=== PATIENT | male | born 1975 | race African-American/Black ===

== ENCOUNTER 2017-08-31 11:05 | Observation (INO) | payer SELFPAY ==
[2017-08-31] MEDS ORDERED: NORMAL SALINE 1000 ML 1,000 ML IV ONE ×2 (12:06→14:58)
--- NOTE | 2017-08-31 12:06 | ER Document Report ---
ED Medical Screen (RME) - General Chief Complaint: Abdominal Pain Stated Complaint: ABDOMINAL PAIN Time Seen by Provider: 08/31/17 11:54 Mode of Arrival: Ambulatory Information source: Patient TRAVEL OUTSIDE OF THE [place] IN LAST 30 DAYS: No - Related Data Allergies/Adverse Reactions: No Known Allergies Allergy (Unverified 08/31/17 11:07) Physical Exam - Vital signs Vitals: Temp Pulse Resp BP Pulse Ox 98.0 F 60 16 156/105 H 97 08/31/17 11:10 08/31/17 11:10 08/31/17 11:10 08/31/17 11:10 08/31/17 11:10 Course - Vital Signs Vital signs: Temp Pulse Resp BP Pulse Ox 98.0 F 60 16 156/105 H 97 08/31/17 11:10 08/31/17 11:10 08/31/17 11:10 08/31/17 11:10 08/31/17 11:10
--- NOTE | 2017-08-31 12:11 | ER Document Report ---
ED GI/ - General Chief Complaint: Abdominal Pain Stated Complaint: ABDOMINAL PAIN Time Seen by Provider: 08/31/17 11:54 Mode of Arrival: Ambulatory Information source: Patient Notes: 42-year-old obese smoker is complaining of left-sided abdominal pain that woke him up at 04 100 this morning. He vomited once a couple hours after the pain started and has had a hard and a loose stool today. Neither of those change the pain. It waxes and wanes but does not completely go away. There is no radiation to the penis or testicles or flank. No fever or chills. No history of Crohn's, colitis, pancreatitis, diverticulitis, kidney stones. TRAVEL OUTSIDE OF THE [place] IN LAST 30 DAYS: No - Related Data Allergies/Adverse Reactions: No Known Allergies Allergy (Unverified 08/31/17 11:07) Past Medical History - General Information source: Patient - Social History Smoking Status: Current Every Day Smoker Frequency of alcohol use: None Drug Abuse: None Lives with: Spouse/Significant other Family History: Reviewed & Not Pertinent - Medical History Medical History: Negative Surgical Hx: Negative Review of Systems - Review of Systems Constitutional: No symptoms reported EENT: No symptoms reported Cardiovascular: No symptoms reported Respiratory: No symptoms reported Gastrointestinal: See HPI Genitourinary: No symptoms reported Male Genitourinary: No symptoms reported Musculoskeletal: No symptoms reported Skin: No symptoms reported Hematologic/Lymphatic: No symptoms reported Neurological/Psychological: No symptoms reported Physical Exam - Vital signs Vitals: Temp Pulse Resp BP Pulse Ox 98.0 F 60 16 156/105 H 97 08/31/17 11:10 08/31/17 11:10 08/31/17 11:10 08/31/17 11:10 08/31/17 11:10 Interpretation: Normal - General General appearance: Appears well, Alert Notes: Obese - HEENT Head: Normocephalic, Atraumatic Eyes: Normal Conjunctiva: Normal Pupils: PERRL Neck: Supple. No: Lymphadenopathy - Respiratory Respiratory status: No respiratory distress Chest status: Nontender Breath sounds: Normal Chest palpation: Normal - Cardiovascular Rhythm: Regular Heart sounds: Normal auscultation Murmur: No - Abdominal Inspection: Normal Distension: No distension Bowel sounds: Normal Tenderness: Tender - left middle quadrant, LLQ, RLQ Organomegaly: No organomegaly. No: Hepatomegaly, Splenomegaly - Back Back: Normal, Nontender. No: CVA tenderness - Extremities General upper extremity: Normal inspection, Nontender, Normal color, Normal ROM , Normal temperature General lower extremity: Normal inspection, Nontender, Normal color, Normal ROM , Normal temperature, Normal weight bearing. No: Km's sign - Neurological Neuro grossly intact: Yes Cognition: Normal Orientation: AAOx4 Leggett Coma Scale Eye Opening: Spontaneous Mukesh Coma Scale Verbal: Oriented Leggett Coma Scale Motor: Obeys Commands Leggett Coma Scale Total: 15 Speech: Normal Motor strength normal: LUE, RUE, LLE, RLE Sensory: Normal - Psychological Associated symptoms: Normal affect, Normal mood - Skin Skin Temperature: Warm Skin Moisture: Dry Skin Color: Normal Skin irregularity: negative: Rash Course - Re-evaluation Re-evalutation: 08/31/17 14:44 CBC elevated white count 13.9 with 87% segs, urine 1+ bacteria and 11 WBCs I added a urine culture and ordered Rocephin 1 g IV. He is only tender in the right lower quadrant at this time over McBurney's but there is no guarding or rebound. I did call Dr. Renee to have him look at the patient and he also examined the CT scan. The radiologist that the appendix was normal he did mention a 3.6 cm esophageal cyst which the patient will have to see a sleeve tailor about. There is also nonobstructing left renal stones. Dr. Renee will come see the patient. 08/31/17 14:46 08/31/17 14:58 Dr. Renee saw the patient and thinks it might be appendicitis he wants another liter of fluid given no pain medicine and Rocephin 1 g IV which have been ordered. 08/31/17 16:09 dr quinones is taking the pt to surgery. - Vital Signs Vital signs: Temp Pulse Resp BP Pulse Ox 98.0 F 60 16 156/105 H 97 08/31/17 11:10 08/31/17 11:10 08/31/17 11:10 08/31/17 11:10 08/31/17 11:10 - Laboratory Result Diagrams: 08/31/17 12:30 08/31/17 12:30 Laboratory results interpreted by me: 08/31/17 08/31/17 08/31/17 12:13 12:30 12:30 WBC 13.9 H RBC 6.14 H Hgb 17.1 H RDW 14.7 H Seg Neutrophils % 87.2 H Lymphocytes % 8.6 L Absolute Neutrophils 12.2 H Potassium 5.3 H Chloride 110 H Direct Bilirubin 0.8 H ALT 19 L Urine Protein 30 H Ur Leukocyte Esterase SMALL H Discharge - Discharge Clinical Impression: Right lower quadrant abdominal pain Condition: Stable Disposition: ADMITTED INPATIENT Admitting Provider: Surgicalist Unit Admitted: Surgical Floor
[2017-08-31 12:28] LABS: APPEARANCE,URINE CLEAR; BILIRUBIN,URINE NEGATIVE (NEGATIVE); COLOR,URINE YELLOW; GLUCOSE, URINE NEGATIVE (NEGATIVE); KETONES,URINE NEGATIVE (NEGATIVE); LEUKOCYTE ESTERASE,URINE SMALL (NEGATIVE); NITRITE,URINE NEGATIVE (NEGATIVE); PROTEIN,URINE 30 mg/dL (NEGATIVE); URINE SPECIFIC GRAVITY 1.012; UROBILINOGEN,URINE NEGATIVE mg/dL (<2.0)
[2017-08-31] MEDS ORDERED: MORPHINE SULFATE 10 MG/ML INJ IV ONE ×2 (12:42→16:13)
[2017-08-31] MEDS ORDERED: ONDANSETRON 4 MG TAB.RAPDIS PO ONE (12:42)
[2017-08-31 12:50] LABS: ABSOLUTE EOSINOPHILS # (AUTO) 0.1 10^3/uL (0.0-0.6); ABSOLUTE LYMPHOCYTES (AUTO) 1.2 10^3/uL (0.5-4.7); ABSOLUTE MONOCYTES (AUTO) 0.5 10^3/uL (0.1-1.4); ABSOLUTE NEUT (AUTO) 12.2 10^3/uL (1.7-8.2); BASOPHILS % (AUTO) 0.2 % (0-2); EOSINOPHILS % (AUTO) 0.4 % (0-6); HEMATOCRIT 50.4 % (37.9-51.0); HEMOGLOBIN 17.1 g/dL (13.5-17.0); LYMPHOCYTES % (AUTO) 8.6 % (13-45); MEAN CORPUSCULAR HEMOGLOBIN 27.9 pg (27.0-33.4); MEAN CORPUSCULAR VOLUME 82 fl (80-97); MONOCYTES % (AUTO) 3.6 % (3-13); PLATELET COUNT 278 10^3/uL (150-450); RED BLOOD COUNT 6.14 10^6/uL (4.35-5.55); RED CELL DISTRIBUTION WIDTH 14.7 % (11.5-14.0); SEGMENTED NEUTROPHILS % (AUTO) 87.2 % (42-78); TOTAL CELLS COUNTED % (AUTO) 100 %; WHITE BLOOD COUNT 13.9 10^3/uL (4.0-10.5)
[2017-08-31 13:32] LABS: ALANINE AMINOTRANSFERASE 19 U/L (21-72); ALKALINE PHOSPHATASE 61 U/L (38-126); ANION GAP 9 (5-19); ASPARTATE AMINO TRANSFERASE 43 U/L (17-59); BILIRUBIN,DIRECT 0.8 mg/dL (0.0-0.4); BILIRUBIN,TOTAL 1.2 mg/dL (0.2-1.3); BLOOD UREA NITROGEN 7 mg/dL (7-20); CALCIUM 8.6 mg/dL (8.4-10.2); CARBON DIOXIDE 22 mmol/L (22-30); CHLORIDE 110 mmol/L (98-107); GLUCOSE 102 mg/dL (75-110); LIPASE 57.5 U/L (23-300); POTASSIUM 5.3 mmol/L (3.6-5.0); SODIUM 141.4 mmol/L (137-145); TOTAL PROTEIN 7.4 g/dL (6.3-8.2)
--- NOTE | 2017-08-31 13:40 | RADIOLOGY REPORT (SQ) ---
EXAM DESCRIPTION: CT ABD/PELVIS WITH IV ONLY COMPLETED DATE/TIME: 08/31/2017 12:07 pm REASON FOR STUDY: abd pain COMPARISON: None. TECHNIQUE: CT scan of the abdomen and pelvis performed using helical scanning technique with dynamic intravenous contrast injection. No oral contrast. Images reviewed with lung, soft tissue, and bone windows. Reconstructed coronal and sagittal MPR images reviewed. Delayed images for evaluation of the urinary system also acquired. All images stored on PACS. All CT scanners at this facility use dose modulation, iterative reconstruction, and/or weight based d osing when appropriate to reduce radiation dose to as low as reasonably achievable (ALARA). [facility]: Dose Right [facility]: CareDose [facility]: Dose Right [facility]: Teradose 4D [facility]: [employer] CONTRAST TYPE AND DOSE: contrast/concentration: Isovue 370.00 mg/ml; Total Contrast Delivered: 100.0 ml; Total Saline Delivered: 69.0 ml RENAL FUNCTION: None required. The patient is less than 50 years old. RADIATION DOSE: CT Rad equipment meets quality standard of care and radiation dose reduction techniq ues were employed. CTDIvol: 21.1 - 29.7 mGy. DLP: 2795 mGy-cm.. LIMITATIONS: None. FINDINGS: LOWER CHEST: Lung bases are clear. Just above the level of the GE junction, there is an o void well-circumscribed 3.6 cm low density cyst which appears to be intimately associated with the es ophagus. Possibly exerting mass effect on it. Differential includes an esophageal duplication cyst, pericardial or other cyst. LIVER: Normal size. No masses. No dilated ducts. SPLEEN: Normal size. No focal lesions. PANCREAS: No masses. No significant calcifications. No adjacent inflammation or peripancreatic fluid collections. Pancreatic duct not dilated. GALLBLADDER: No identified stones by CT criteria. No inflammatory changes to suggest cholecystitis. ADRENAL GLANDS: Slight nodularity in the bilateral adrenals without dominant mass. Doubtful clinical significance. RIGHT KIDNEY AND URETER: No solid masses. No significant calcification. No hydronephrosis or hydroure ter. LEFT KIDNEY AND URETER: Nonobstructive left nephrolithiasis. No mass. AORTA AND VESSELS: No aneurysm. No dissection. Renal arteries, SMA, celiac without stenosis. RETROPERITONEUM: No retroperitoneal adenopathy, hemorrhage or masses. BOWEL AND PERITONEAL CAVITY: No masses or inflammatory changes. No free fluid or peritoneal masses. APPENDIX: Normal. PELVIS: No mass. No free fluid. Normal bladder. ABDOMINAL WALL: No masses. No hernias. BONES: No significant or acute findings. OTHER: No other significant finding. IMPRESSION: 1. No acute or suspicious abdominopelvic abnormality. 2. Left nephrolithiasis without e vidence of urinary obstruction. 3. Incidental cyst along the distal esophagus in the posterior medi astinum. 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 This can be associated with dysphagia or vomiting, however this does not sound like the patients current presentation (lower abdominal pain). As warranted, elective followup gastroenterology referral may otherwise be indicated. TECHNICAL DOCUMENTATION: JOB ID: [id number] Quality ID # [id number]: Final reports with documentation of one or more dose reduction techniques (e.g., Au tomated exposure control, adjustment of the mA and/or kV according to patient size, use of iterative reconstruction technique) 2010 [employer]- All Rights Reserved Reading location - IP/workstation name: [email or web address]
[2017-08-31] MEDS ORDERED: VECURONIUM BROMIDE INJ 10 MG VIAL IV ONE (14:16)
[2017-08-31] MEDS ORDERED: SUCCINYLCHOLINE CHLORIDE INJ 200 MG/10 ML VIAL ONE (14:16)
[2017-08-31] MEDS ORDERED: CEFTRIAXONE INJ 1000 MG VIAL IV ONE (14:42)
--- NOTE | 2017-08-31 16:20 | PDOC H&P ---
History of Present Illness Patient complains of: Abdominal pain History of Present Illness: CLARA OLGUIN is a 42 year old male Who presents emergency department complaining of Approximately 12 hour history of abdominal pain. This woke the patient up late last night mostly suprapubic and initially felt on the left side of the abdomen but over the course of the last several hours has focused on the right side. No associated nausea or vomiting. Patient received pain medication IV fluids intravenous antibiotics for persisting abdominal pain with incomplete resolution. Patient underwent CT scan of the abdomen and pelvis with IV contrast only which showed left renal stone no other pathology. Surgery was consulted. Patient was advised admission. Upon examination to the patient by Dr. Renee approximately 1400, the patient has significant right lower quadrant tenderness with guarding. CT scan reviewed by Dr. Renee without oral contrast demonstrated mild periappendiceal stranding. There was no evidence of fluid or free air or phlegmon. The impression at this point was that the patient had acute appendicitis and was offered admission and interval appendectomy. Past Medical History Medical History: None Past Surgical History Past Surgical History: Reports: None, Other - Mild trauma repair soft tissue behind left ear as child Social History Information Source: Patient Lives with: Spouse/Significant other Smoking Status: Current Every Day Smoker Cigarettes Packs Per Day: 1 Frequency of Alcohol Use: Rare Family History Family History: Reviewed & Not Pertinent, CAD Parental Family History Reviewed: Yes Children Family History Reviewed: Yes Sibling(s) Family History Reviewed.: Yes Medication/Allergy Allergies/Adverse Reactions: No Known Allergies Allergy (Unverified 08/31/17 11:07) Review of Systems Constitutional: ABSENT: chills, fever(s), headache(s), weight gain, weight loss Eyes: ABSENT: visual disturbances Ears: ABSENT: hearing changes Cardiovascular: ABSENT: chest pain, dyspnea on exertion, edema, orthropnea, palpitations Respiratory: ABSENT: cough, hemoptysis Gastrointestinal: PRESENT: as per HPI Genitourinary: ABSENT: dysuria, hematuria Musculoskeletal: ABSENT: joint swelling Physical Exam Vital Signs: Temp Pulse Resp BP Pulse Ox 98.0 F 60 16 156/105 H 97 08/31/17 11:10 08/31/17 11:10 08/31/17 11:10 08/31/17 11:10 08/31/17 11:10 Intake & Output 08/30/17 08/31/17 09/01/17 06:59 06:59 06:59 Intake Total 1000 Balance 1000 Weight 142.4 kg General appearance: PRESENT: mild distress Head exam: PRESENT: normocephalic Eye exam: PRESENT: EOMI Ear exam: PRESENT: normal external ear exam Neck exam: PRESENT: full ROM Respiratory exam: PRESENT: rhonchi - biLaterally Cardiovascular exam: PRESENT: RRR Pulses: PRESENT: normal carotid pulses, normal radial pulses, normal femoral pulses GI/Abdominal exam: PRESENT: other - Obese; tender suprapubic areas right much greater than left with guarding. No groin hernias Rectal exam: PRESENT: deferred Gentrourinary exam: PRESENT: other - No obvious lesions Extremities exam: PRESENT: full ROM Musculoskeletal exam: PRESENT: ambulatory Neurological exam: PRESENT: alert, awake, oriented to person, oriented to place , oriented to time, oriented to situation Psychiatric exam: PRESENT: anxious Results Laboratory Results: 08/31/17 12:30 08/31/17 12:30 08/31/17 08/31/17 08/31/17 12:13 12:30 12:30 WBC 13.9 H RBC 6.14 H Hgb 17.1 H Hct 50.4 MCV 82 MCH 27.9 MCHC 34.0 RDW 14.7 H Plt Count 278 Seg Neutrophils % 87.2 H Lymphocytes % 8.6 L Monocytes % 3.6 Eosinophils % 0.4 Basophils % 0.2 Absolute Neutrophils 12.2 H Absolute Lymphocytes 1.2 Absolute Monocytes 0.5 Absolute Eosinophils 0.1 Absolute Basophils 0.0 Sodium 141.4 Potassium 5.3 H Chloride 110 H Carbon Dioxide 22 Anion Gap 9 BUN 7 Creatinine 0.68 Est GFR ( Amer) > 60 Est GFR (Non-Af Amer) > 60 Glucose 102 Calcium 8.6 Total Bilirubin 1.2 AST 43 ALT 19 L Alkaline Phosphatase 61 Total Protein 7.4 Albumin 4.0 Lipase 57.5 Urine Color YELLOW Urine Appearance CLEAR Urine pH 7.0 Ur Specific [place] 1.012 Urine Protein 30 H Urine Glucose (UA) NEGATIVE Urine Ketones NEGATIVE Urine Blood NEGATIVE Urine Nitrite NEGATIVE Ur Leukocyte Esterase SMALL H Urine WBC (Auto) 21 Urine RBC (Auto) 2 Impressions: Abdomen/Pelvis CT 08/31/17 12:06 IMPRESSION: 1. No acute or suspicious abdominopelvic abnormality. 2. Left nephrolithiasis without evidence of urinary obstruction. 3. Incidental cyst along the distal esophagus in the posterior mediastinum. 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 This can be associated with dysphagia or vomiting , however this does not sound like the patients current presentation (lower abdominal pain). As warranted, elective followup gastroenterology referral may otherwise be indicated. Status: Image reviewed by me - No free fluid no free air; borderline prominent appendix with early periappendiceal stranding Assessment & Plan - Diagnosis (1) Acute abdominal pain Is this a current diagnosis for this admission?: Yes Plan: Patient's clinical history physical exam findings laboratory profile consistent with acute appendicitis; the CT scan finding was soft at best; scan accuracy diminished due to absence of oral contrast. Patient still hurting after pain medication, IV fluids, IV antibiotics. Recommendations: 1. Admit, keep n.p.o., continue IV fluids. 2. I have recommended laparoscopic possible open appendectomy, general anesthesia, 1 hour, main operating room, today, [facility]; risk benefits and alternatives of planned procedure explained to the patient. These included bleeding, infection, need for additional surgery, need for drain placement. I believe he understands and agrees to proceed (2) Leukocytosis Is this a current diagnosis for this admission?: Yes (4) Smoker Is this a current diagnosis for this admission?: Yes - Time Time Spent: 30 to 50 Minutes Critical Time spent with patient: 15-24 minutes Medications reviewed and adjusted accordingly: Yes Anticipated discharge: Home Within: within 24 hours - Inpatient Certification Based on my medical assessment, after consideration of the patient's comorbidities, presenting symptoms, or acuity I expect that the services needed warrant INPATIENT care.: Yes Medical Necessity: Need For IV Fluids, Need for Pain Control, Need for IV Antibiotics, Need for Surgery
[2017-08-31] MEDS ORDERED: ONDANSETRON HCL INJ/PF 4 MG/2 ML SDV IV ONE (16:23)
[2017-08-31] MEDS ORDERED: BUPIVACAINE HCL 0.25 % INJ/PF (2.5 MG/1 ML) 30 ML VIAL ONE (16:26)
[2017-08-31] MEDS ORDERED: HYDROMORPHONE HCL INJ/PF 2 MG/ML AMPULE ONE (16:51)
[2017-08-31] MEDS ORDERED: FENTANYL CITRATE INJ/PF 250 MCG/5 ML AMPULE ONE (16:51)
[2017-08-31] MEDS ORDERED: LIDOCAINE 2% INJ-PF (20 MG/ML) 10 ML AMPUL ONE (16:51)
[2017-08-31] MEDS ORDERED: PROPOFOL INJ 200 MG/20 ML VIAL IV ONE (16:52)
[2017-08-31] MEDS ORDERED: EPHEDRINE SULFATE INJ 50 MG/1 ML AMPULE ONE (16:52)
[2017-08-31] MEDS ORDERED: ACETAMINOPHEN 1,000 MG/100 ML RTUPB IV ONE (16:52)
[2017-08-31] MEDS ORDERED: DEXAMETHASONE SOD PHOSPHATE INJ 4 MG/1 ML VIAL ONE (16:52)
[2017-08-31] MEDS ORDERED: MIDAZOLAM 2 MG/2 ML INJ ONE (16:52)
[2017-08-31] MEDS ORDERED: ONDANSETRON HCL INJ/PF 4 MG/2 ML SDV ONE (16:52)
[2017-08-31] MEDS ORDERED: KETOROLAC TROMETHAMINE 60 MG/2 ML SDV ONE (16:53)
[2017-08-31] MEDS ORDERED: ALBUTEROL SULFATE 0.083% NEB 2.5 MG/3 ML AMPUL NEB ONE (17:00)
[2017-08-31 17:35] LABS: ANION GAP 9 (5-19); BLOOD UREA NITROGEN 6 mg/dL (7-20); CALCIUM 8.4 mg/dL (8.4-10.2); CARBON DIOXIDE 24 mmol/L (22-30); CHLORIDE 110 mmol/L (98-107); GLUCOSE 108 mg/dL (75-110); SODIUM 142.6 mmol/L (137-145)
[2017-08-31 17:39] LABS: POTASSIUM 4.1 mmol/L (3.6-5.0)
[2017-08-31] MEDS ORDERED: OXYCODONE-ACETAMINOPHEN 5-325 MG TABLET PO PRN ×3 (18:01→18:36)
[2017-08-31] MEDS ORDERED: MEPERIDINE HCL/PF INJ 25 MG/1 ML DISP.SYRIN IV PRN (18:01)
[2017-08-31] MEDS ORDERED: PROMETHAZINE HCL INJ 25 MG/1 ML VIAL IV PRN ×2 (18:01)
[2017-08-31] MEDS ORDERED: MORPHINE SULFATE 10 MG/ML INJ IV PRN (18:01)
[2017-08-31] MEDS ORDERED: FENTANYL CITRATE INJ/PF 100 MCG/2 ML AMPUL IV PRN ×3 (18:01)
[2017-08-31] MEDS ORDERED: DIPHENHYDRAMINE HCL 50 MG/ML VIAL IV PRN (18:01)
[2017-08-31] MEDS ORDERED: ONDANSETRON HCL INJ/PF 4 MG/2 ML SDV IV PRN ×2 (18:01→18:36)
--- NOTE | 2017-08-31 18:44 | Operative Report ---
Operative Report DATE OF SURGERY: 08/31/17 PREOPERATIVE DIAGNOSIS: Acute appendicitis POSTOPERATIVE DIAGNOSIS: Same OPERATION: Laparoscopic appendectomy SURGEON: BELL SHARP ANESTHESIA: GA TISSUE REMOVED OR ALTERED: appendix COMPLICATIONS: none ESTIMATED BLOOD LOSS: scant INTRAOPERATIVE FINDINGS: see below PROCEDURE: The patient was taken to the preop holding area the main operating room where generalized was induced. Arms were abducted, abdomen prepped and draped in sterile fashion. Patient had voided prior to entry into the operating room. Surgical plan surgical timeout were conducted Markings were made on the skin for 3 port appendectomy. Skin was anesthetized with 1% plain lidocaine. A supraumbilical vertical incision made with a knife no cavity pneumoperitoneum established. Veress needle was removed, 5 mm port was inserted and a flexible 5 mm viewing scope was inserted. Under direct visualization 2 additional ports were placed one 5 mm supraumbilical position and a 12 mm left lower quadrant. Findings are significant for an acutely inflamed appendix with seropurulent discharge in this immediate vicinity. There is no evidence of widespread peritonitis, or rupture. The appendix was grasped, and the mesoappendix taken down with blunt and hook dissection. We had the appendix is suspended from the mesoappendix and the junction between the base the appendix and the cecum was clearly visualized. We opened up the mesoappendix adjacent to the base of the appendix. A single firing of the 55 mm Endo JUAN blue load stapler was deployed across the appendiceal base. We reloaded the stapler and fired again across the mesoappendix. The appendix was placed in Endobag and brought out of the patient to the left lower quadrant port site. There was some bleeding thereafter from the port site but this was monitored and abated spontaneously. There was some bleeding from the staple line and this was managed expectantly, and with the use of surgery cell. Photos were taken. We level the patient now check for bleeding there was none. The bleeding from the left lower quadrant abdominal wall port site had abated. Photos were taken. We felt the operation was complete. Sponge and needle counts were correct. All ports removed under direct visualization, pneumoperitoneum evacuated, and wounds closed with 0 Vicryl 3-0 Vicryl benzoin and Steri-Strips. Patient was now extubated, and taken to the recovery room in stable condition.
[2017-08-31] MEDS ORDERED: HYDROMORPHONE HCL INJ 2 MG/ML 20 ML MDV IV ONE (23:00)
[2017-08-31] MEDS ORDERED: AMIODARONE HCL INJ 150 MG/3 ML VIAL IV ONE (23:00)
[2017-09-01] MEDS ORDERED: OXYCODONE-ACETAMINOPHEN 5-325 MG TABLET PO PRN (00:24)
--- NOTE | 2017-09-01 09:29 | PDOC DISCHARGE SUMMARY ---
General - Admit/Disc Date/PCP Admission Date/Primary Care Provider: 08/31/17 16:09 Discharge Date: 09/01/17 - Discharge Diagnosis (1) Appendicitis, acute Is this a current diagnosis for this admission?: Yes - Additional Information Resuscitation Status: Full Code Discharge Diet: As Tolerated Discharge Activity: No Lifting Over 10 Pounds History of Present Illness History of Present Illness: CLARA OLGUIN is a 42 year old male with right lower quadrant abdominal pain, fevers, chills, and leukocytosis. The patient was felt to have acute appendicitis and taken to the operating room for surgical intervention. Hospital Course Hospital Course: Patient was taken to the operating room where acute appendicitis was identified. It was not perforated. The patient was then taken to the floor in stable condition after a successful laparoscopic appendectomy. Patient did well. He was tolerating a diet, ambulating, and his pain was controlled with oral medications. By 09/01/2017 the patient had reached maximal hospital benefit , and was fit for discharge. Physical Exam Vital Signs: Temp Pulse Resp BP Pulse Ox 98.0 F 81 16 117/71 94 09/01/17 08:00 09/01/17 08:00 09/01/17 08:00 09/01/17 08:00 09/01/17 08:00 Intake & Output 08/31/17 09/01/17 09/02/17 06:59 06:59 06:59 Intake Total 3900 Output Total 560 Balance 3340 Weight 146.6 kg Results Laboratory Results: 08/31/17 16:50 08/31/17 08/31/17 16:50 16:50 Sodium 142.6 Potassium Cancelled 4.1 D Chloride 110 H Carbon Dioxide 24 Anion Gap 9 BUN 6 L Creatinine 0.67 Est GFR ( Amer) > 60 Est GFR (Non-Af Amer) > 60 Glucose 108 Calcium 8.4 Impressions: Abdomen/Pelvis CT 08/31/17 12:06 IMPRESSION: 1. No acute or suspicious abdominopelvic abnormality. 2. Left nephrolithiasis without evidence of urinary obstruction. 3. Incidental cyst along the distal esophagus in the posterior mediastinum. 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 This can be associated with dysphagia or vomiting , however this does not sound like the patients current presentation (lower abdominal pain). As warranted, elective followup gastroenterology referral may otherwise be indicated. Qualifiers - * PATIENT BEING DISCHARGED WITH ANY OF THE FOLLOWING DIAGNOSIS: No VTE patient discharged on overlapping Therapy?: No Reason(s) for not prescribing Overlap Therapy:: Not indicated Plan Discharge Plan: Discharge home. Diet: As tolerated. Activity: No lifting greater than 10 pounds 2 weeks. Okay to shower starting on Sunday. No submerging the incisions beneath the body of water for 2 weeks. Follow up at [place] [facility] in 7-10 days. Time Spent: Less than 30 Minutes
[2017-09-01] MEDS ORDERED: DOCUSATE SODIUM 100 MG CAPSULE PO SCH (10:00)
[2017-09-01 11:01] VITALS: BP 122/83
== END 2017-09-01 11:18 | disposition home or self-care (01) ==
LOC: EDBD 11:05 → ER 11:05 → EH 16:09 → 4S 20:25
PROVIDERS: ADMIT Surgery; ATTEND Surgery
PROC: 0DTJ4ZZ Resection of Appendix, Percutaneous Endoscopic Approach (ICD-10-PCS; principal; 2017-08-31 16:30)
DX: K35.80 Unspecified acute appendicitis (principal); K38.8 Other specified diseases of appendix; F17.210 Nicotine dependence, cigarettes, uncomplicated; E66.9 Obesity, unspecified; K22.8 Other specified diseases of esophagus; N20.0 Calculus of kidney; Z68.42 Body mass index [BMI] 45.0-49.9, adult
CPT/HCPCS: 96376; 99285; 96361; 96374; 96375; 36415; 87086; 83690; 85025; 80048; 80053; 81001; 74177; 44970; G0378 ×3; J2250; J1100; J1885; S0119; J3010; J3490 ×2; J2270; J0330; J0696; J2405; J7030; J2704; J0131; 840; J1170